=== PATIENT | male | born 1990 | race Caucasian/White ===

== ENCOUNTER 2018-07-29 09:02 | Emergency (ER) | payer SELFPAY ==
[~2018-07-29] VITALS: Ht 157.5 cm; Wt 71.7 kg
[2018-07-29 09:17] VITALS: BP 118/67; Ht 157.5 cm; Wt 71.7 kg
== END 2018-07-29 09:42 | disposition home or self-care (01) ==
LOC: ED 09:02
DX: B35.6 Tinea cruris (principal)